=== PATIENT | male | born 1995 | race Caucasian/White ===

== ENCOUNTER 2017-09-15 20:06 | Emergency (ER) | payer OTHER ==
[2017-09-15] MEDS: LISSAMINE GREEN OPHTH 1.5 MG STRIP OD (20:45)
[2017-09-15] MEDS: TETRACAINE 0.5% OPHTH SOLN 4ML OD (20:45)
[2017-09-15] MEDS: ERYTHROMYCIN OPHTH OINT OS (21:15)
== END 2017-09-15 22:09 | disposition home or self-care (01) ==
LOC: M ED 20:06
DX: H57.8 Other specified disorders of eye and adnexa (principal); H52.202 Unspecified astigmatism, left eye
CPT/HCPCS: 99283

== ENCOUNTER 2018-10-10 04:54 | Emergency (ER) | payer OTHER ==
[~2018-10-10] VITALS: Ht 167.6 cm; Wt 68.6 kg
[2018-10-10 04:54] VITALS: BP 111/68
[~2018-10-10 04:54] MED LIST: ERYT1OIN26 OS
[2018-10-10] MEDS ORDERED: DERMABOND TOPICAL SKIN ADHESIVE TOP ONE (07:45)
--- NOTE | 2018-10-10 08:42 | REPVR ---
EXAM: CT Maxillofacial Without Contrast EXAM DATE/TIME: 10/10/2018 6:47 AM CLINICAL HISTORY: 23 years old, male; Injury or trauma; Fall; Initial encounter; Blunt trauma (contusions or hematomas); Nose; Additional info: Fall hitting face on floor TECHNIQUE: Imaging protocol: Computed tomography images of the face without contrast. Coronal and sagittal reformatted images were created and reviewed. Radiation optimization: All CT scans at this facility use at least one of these dose optimization techniques: automated exposure control; mA and/or kV adjustment per patient size (includes targeted exams where dose is matched to clinical indication); or iterative reconstruction. COMPARISON: No relevant prior studies available. FINDINGS: Orbits: The globes are intact bilaterally. The intraconal fat and extraocular muscles appear normal bilaterally. The orbital rims are intact. Sinuses: The sinuses are clear. No fluid levels. Bones/joints: There is no evidence of acute fracture. Soft tissues: Unremarkable. IMPRESSION: No fractures identified. Electronically signed by: Belgica De Jesus On 10/10/2018 08:42:28 AM
== END 2018-10-10 09:34 | disposition home or self-care (01) ==
LOC: M ED 04:54
DX: S01.81XA Laceration without foreign body of other part of head, initial encounter (principal); W18.39XA Other fall on same level, initial encounter; Y92.018 Other place in single-family (private) house as the place of occurrence of the external cause

== ENCOUNTER 2019-02-22 13:09 | Emergency (ER) | payer OTHER ==
[~2019-02-22] VITALS: Ht 167.6 cm; Wt 69.1 kg
[2019-02-22 13:10] VITALS: BP 147/68
--- NOTE | 2019-02-22 14:14 | REP ---
Clinical: Pain. Technique: AP, lateral, bilateral oblique and sunrise views right knee . Findings: The osseous structures and joint spaces are intact and normal. There is no evidence for acute fracture or dislocation. No joint effusion is appreciated. Surrounding soft tissues are unremarkable. No subcutaneous emphysema or radiodense foreign body. Impression: Normal examination. No acute fracture or dislocation. Electronically Signed by Satya Larkin MD 02/22/2019 02:04 P
[2019-02-22] MEDS ORDERED: IBUP-1022 PO (14:20)
== END 2019-02-22 14:30 | disposition home or self-care (01) ==
LOC: M ED 13:09
DX: S83.91XA Sprain of unspecified site of right knee, initial encounter (principal); X50.9XXA Other and unspecified overexertion or strenuous movements or postures, initial encounter; Y92.018 Other place in single-family (private) house as the place of occurrence of the external cause